=== PATIENT | female | born 1975 | race Asian ===

== ENCOUNTER 2018-01-21 13:25 | Emergency (ER) | payer MEDICAID ==
[2018-01-21] MEDS ORDERED: METOCLOPRAMIDE 10 MG/2 ML VIAL IVP ONE (13:57)
[2018-01-21] MEDS ORDERED: DEXAMETHASONE 10 MG/ML VIAL IVP ONE (13:57)
[2018-01-21] MEDS ORDERED: NS 1,000 ML IV ONE (13:57)
[2018-01-21] MEDS ORDERED: ONDANSETRON 4 MG/2 ML VIAL IVP ONE (13:57)
[2018-01-21] MEDS ORDERED: HYDROmorphONE/DILAUDID 2 MG/ML INJ IVP ONE (13:57)
--- NOTE | 2018-01-21 14:02 | EDPHY ---
H & P Time Seen by Provider: 01/21/18 13:32 HPI/ROS: HPI Headache. 42-year-old female by ambulance. This patient reports that at approximately 8: 00 a.m. She developed a gradual onset frontal headache which increased in intensity rapidly and has been worsening through the day. She describes the pain is deep, throbbing and frontal. She has had associated nausea and photophobia. She has had migraine headaches in the past but not at this intensity. She also states that she feels lightheaded and dizzy which she describes as feeling off balance secondary to her headache. She denies any focal weakness or altered sensation in her extremities. No neck pain. She has not had a fever. There is no history of trauma. ROS: Constitutional: No fever, no chills. No weakness. Eyes: No discharge. No changes in vision. ENT: No sore throat. No nasal congestion or rhinorrhea. As above. Respiratory: No cough. No shortness of breath. Cardiac: No chest pain, no palpitations. Gastrointestinal: No abdominal pain, no vomiting, no diarrhea. As above. Genitourinary: No hematuria. No dysuria or increased frequency with urination. Musculoskeletal: No back pain. No neck pain. No myalgias or arthralgias. Skin: No rashes. Neurological: As above. No focal weakness or altered sensation. Past medical history: Lupus, hypertension, IUD in place. Social history: Nonsmoker. No alcohol. Here by herself. Physical Exam: General Appearance: Alert, she appears uncomfortable but not in distress. This patient is responding to questions appropriately and in full sentences. This patient appears well-hydrated and well-nourished. Eyes: Pupils equal and round no pallor or injection. No lid edema, erythema or injection. Photophobia is present. No nystagmus. ENT, Mouth: Mucous membranes are moist. The pharyngeal tissues are unremarkable. No edema or swelling. No asymmetry suggestive of abscess. No erythema or exudates. Respiratory: There are no retractions, lungs are clear to auscultation with good air movement bilaterally. Cardiovascular: Regular rate and rhythm. No murmur. Gastrointestinal: Abdomen is soft and nontender, no masses, bowel sounds normal. No focal tenderness at McBurney's point. No No sign. Neurological: Motor sensory function is grossly intact. Cranial nerves are normal. Gait is normal. Skin: Warm and dry, no rashes. Musculoskeletal: Neck is supple and nontender. No pain on flexion of her neck. Extremities are symmetrical. All joints range without pain or impingement. Psychiatric: No agitation. No depression. Database: EKG: Imaging: CT head without contrast: Negative. Results were discussed with staff radiologist Dr. Yefri Figueroa. Discussed reasoning for CT and patient's symptoms of vertigo with headache with Dr. Figueroa. He recommends an MRA of the neck and an MRI with and without contrast of the brain. MRI of brain with and without contrast and MRA of neck: No acute pathology. Unremarkable study. Results were discussed with staff radiologist Dr. Mario Zhang. Procedures: Emergency department course: Triage vital signs reviewed. She is moderately hypertensive. Vital signs otherwise normal. IV was placed. She was started on IV normal saline with 500 cc to 1 L to be given over the next hour. Medication allergies reviewed. Secondary to the intensity of this headache and the fact that it is more intense than her previously experience migraine headaches she endorses CT imaging. This will be obtained shortly. In his treatment for headache will consist of 4 mg of IV Zofran, 10 mg of IV Decadron, 10 mg of Reglan, 25 mg of Benadryl and 0.5 mg of hydromorphone. 3:30 p.m., the patient was re-evaluated. She states that her headache has resolved. However, she still feels a sensation of vertigo described as her head spinning and feeling off balance. After discussion with staff radiologist Dr. Yefri Figueroa, will obtain an MRA of her neck and an MRI with and without contrast of her brain to evaluate her posterior circulation. She consents to this study. 5:50 p.m., patient re-evaluated. She is resting comfortably at this time. Denies any headache. Repeat neurologic exam is nonfocal. She is up and ambulatory with a normal gait. Results of her MRI and MRA discussed with her. She feels comfortable going home at this time and I feel she is safe for discharge. Follow-up and return to emergency department precautions discussed with her. I will prescribe her meclizine to take as needed for her vertigo. Return to emergency department precautions were thoroughly reviewed with her. All of her questions were answered. She was discharged from the emergency department in good condition. Differential Diagnosis: The differential diagnosis on this patient includes but is not limited to migraine headache syndrome, peripheral vertigo. Subarachnoid hemorrhage, CVA, meningitis, encephalitis, cavernous sinus thrombosis, sagittal sinus thrombosis , temporal arteritis, vertebral artery dissection, carotid artery dissection unlikely. This represents a partial list of diagnoses considered. These considerations are based on history, physical exam, past history, reassessment and diagnostic testing. Smoking Status: Never smoked Constitutional: Initial Vital Signs Heart Rate 96 01/21/18 13:32 Respiratory Rate 14 01/21/18 13:32 Blood Pressure 145/100 H 01/21/18 13:32 O2 Sat (%) 96 01/21/18 13:32 O2 Delivery Mode Room Air O2 (L/minute) 36.8 Allergies/Adverse Reactions: shellfish derived Allergy (Verified 01/21/18 13:31) Home Medications: Medication Instructions Recorded HCTZ (*) 01/21/18 Meclizine HCl [ANTIVERT] 25 mg PO Q6 PRN #10 tab 01/21/18 Medical Decision Making - Data Points Laboratory Results: Laboratory Results 01/21/18 13:51 01/21/18 13:51 Medications Given: Discontinued Medications Dexamethasone (Decadron Injection) 10 mg IVP EDNOW ONE Stop: 01/21/18 13:58 Last Admin: 01/21/18 14:12 Dose: 10 mg Diphenhydramine HCl (Benadryl Injection) 25 mg IVP EDNOW ONE Stop: 01/21/18 13:58 Last Admin: 01/21/18 14:11 Dose: 25 mg Hydromorphone HCl (Dilaudid) 0.5 mg IVP EDNOW ONE Stop: 01/21/18 13:58 Last Admin: 01/21/18 14:10 Dose: 0.5 mg Sodium Chloride (Ns) 1,000 mls @ 0 mls/hr IV ONCE ONE; Wide Open PRN Reason: Protocol Stop: 01/21/18 13:58 Last Admin: 01/21/18 14:13 Dose: 1,000 mls Metoclopramide HCl (Reglan Injection) 10 mg IVP EDNOW ONE Stop: 01/21/18 13:58 Last Admin: 01/21/18 14:09 Dose: 10 mg Ondansetron HCl (Zofran) 4 mg IVP EDNOW ONE Stop: 01/21/18 13:58 Last Admin: 01/21/18 14:13 Dose: 4 mg Departure - Departure Disposition: Home, Routine, Self-Care Clinical Impression: Headache, Vertigo Condition: Good Instructions: Migraine Headache (ED), Vertigo (ED) Additional Instructions: Read and follow provided instructions. Follow-up with your primary care physician on Tuesday for re-evaluation. Take medication as prescribed and only as needed for vertigo. This medication will make you drowsy. Return to the emergency department for worsening symptoms, return of headache, neck pain, lightheadedness or other serious concerns. Referrals: Patient,NotPresent [Unknown] - As per Instructions Prescriptions: Meclizine HCl [ANTIVERT] 25 mg PO Q6 PRN #10 tab PRN Reason: Dizziness
[2018-01-21 14:07] LABS: PLATELET COUNT 201 10^3/uL (150-400)
[2018-01-21] MEDS ORDERED: GADOBUTROL 10 ML VIAL IVP ONE (15:49)
[2018-01-21 17:26] VITALS: BP 114/66
== END 2018-01-21 18:10 | disposition home or self-care (01) ==
DX: R51 Headache (principal); R42 Dizziness and giddiness; E86.9 Volume depletion, unspecified
CPT/HCPCS: 96374; A9585; J1100; J1170; J1200; J2405; J2765

== ENCOUNTER → 2018-03-31 | Outpatient (CLI) | payer MEDICAID | LOC: BMCIMAGING 14:24 | PROVIDERS: ATTEND Physician Assistant | DX: Z12.31 Encounter for screening mammogram for malignant neoplasm of breast (principal) ==

== ENCOUNTER 2018-08-28 09:38 | Emergency (ER) | payer MEDICAID ==
[2018-08-28 09:45] VITALS: BP 128/89
--- NOTE | 2018-08-28 10:40 | EDPHY ---
H & P Stated Complaint: cough, some blood in sputum, dizzy Time Seen by Provider: 08/28/18 10:06 HPI/ROS: CHIEF COMPLAINT: Cough HISTORY OF PRESENT ILLNESS: 43-year-old female with lupus on Plaquenil and methotrexate presents with cough and sore throat. Onset URI symptoms 4 days ago. The cough has gradually progressed and is productive of yellowish sputum with occasional streaks of blood. Associated with a low-grade fever and moderate sore throat. No congestion or shortness of breath. History of pneumonia. REVIEW OF SYSTEMS: complete 10 point ROS reviewed and is negative except for the noted elements in the HPI - Personal History LMP (Females 10-55): 1-7 Days Ago Current Tetanus Diphtheria and Acellular Pertussis (TDAP): Yes - Medical/Surgical History Hx Asthma: No Hx Chronic Respiratory Disease: No Hx Diabetes: No Hx Cardiac Disease: Yes Hx Renal Disease: No Hx Cirrhosis: No Hx Alcoholism: No Hx HIV/AIDS: No Hx Splenectomy or Spleen Trauma: No Other PMH: lupus, HTN - Social History Smoking Status: Never smoked Constitutional: Initial Vital Signs Temperature (C) 37.2 C 08/28/18 09:41 Heart Rate 73 08/28/18 09:41 Respiratory Rate 16 08/28/18 09:41 Blood Pressure 128/89 H 08/28/18 09:41 O2 Sat (%) 97 08/28/18 09:41 O2 Delivery Mode Room Air Allergies/Adverse Reactions: shellfish derived Allergy (Verified 01/21/18 13:31) Home Medications: Medication Instructions Recorded HCTZ (*) 01/21/18 Meclizine HCl [ANTIVERT] 25 mg PO Q6 PRN #10 tab 01/21/18 Azithromycin [Zithromax] 250 mg PO DAILY #6 tab 08/28/18 Benzonatate [Tessalon Pearles (RX)] 100 mg PO TID PRN #15 cap 08/28/18 Codeine Phosphate/Guaifenesin 10 ml PO Q4 PRN #150 ml 08/28/18 [Guaiatussin AC Liquid] Medical Decision Making - Diagnostics Imaging Results: Chest x-ray independently reviewed by me reveals no acute disease. Imaging: I viewed and interpreted images myself ED Course/Re-evaluation: This is an immunocompromised patient who presents with cough and low-grade fever. Chest x-ray is unremarkable. I will place her on Zithromax x5 days for possibly early pneumonia. Warning signs discussed. Departure - Departure Disposition: Home, Routine, Self-Care Clinical Impression: Acute bronchitis Qualifiers: Bronchitis organism: unspecified organism Qualified Code(s): J20.9 - Acute bronchitis, unspecified Condition: Good Instructions: Acute Bronchitis (ED) Additional Instructions: Drink plenty of fluids. Return for worsening symptoms or any concerns. Referrals: Christine Grier PA [Primary Care Provider] - 2-3 days, if not improved Stand Alone Forms: Work Excuse Prescriptions: Azithromycin [Zithromax] 250 mg PO DAILY #6 tab Benzonatate [Tessalon Pearles (RX)] 100 mg PO TID PRN #15 cap PRN Reason: cough Codeine Phosphate/Guaifenesin [Guaiatussin AC Liquid] 10 ml PO Q4 PRN #150 ml PRN Reason: cough
== END 2018-08-28 10:57 | disposition home or self-care (01) ==
DX: J20.9 Acute bronchitis, unspecified (principal); L93.2 Other local lupus erythematosus; I10 Essential (primary) hypertension; Z79.899 Other long term (current) drug therapy

== ENCOUNTER 2018-10-31 08:38 | Emergency (ER) | payer MEDICAID | END 2018-10-31 12:11 | disposition home or self-care (01) ==